=== PATIENT | female | born 1990 | race African-American/Black ===

== ENCOUNTER 2018-01-08 05:19 | Inpatient (IN) | payer SELFPAY ==
[~2018-01-08] VITALS: Ht 175.3 cm; Wt 96.0 kg
[2018-01-08] MEDS ORDERED: DEXT 5%/LR + PITOCIN 20UNITS/L 1,000 ML IV SCH (06:17)
[2018-01-08] MEDS ORDERED: LACTATED RINGERS 1,000 ML IV SCH (06:17)
[2018-01-08] MEDS ORDERED: CARBOPROST TROMETHAMINE 250 MCG/ML AMPUL IM PRN (06:30)
[2018-01-08] MEDS ORDERED: NALOXONE HCL 0.4 MG/ML 1ML VIAL IM PRN (06:30)
[2018-01-08] MEDS ORDERED: METHYLERGONOVINE MALEATE 0.2 MG/ML IM PRN (06:30)
[2018-01-08 06:37] LABS: BASOPHILS % 0.4 % (0.0-2.0); EOSINOPHILS % 0.9 % (0.0-5.0); HEMATOCRIT. 34.3 % (36.0-48.0); HEMOGLOBIN. 11.7 g/dL (12.0-16.0); LYMPHOCYTES % 18.1 % (20.0-50.0); MEAN CORPUSCULAR HEMOGLOBIN 32.1 pg (28.0-32.0); MEAN CORPUSCULAR VOLUME 93.9 fL (81.0-99.0); MEAN PLATELET VOLUME 11.3 fl (7.4-10.4); NEUTROPHILS % 74.6 % (40.0-76.0); PLATELET 190 x1000/uL (130-400); RED BLOOD CELL COUNT 3.65 mill/uL (4.2-5.4); RED CELL DISTRIBUTION WIDTH 14.4 % (11.6-14.6)
[2018-01-08] MEDS ORDERED: CITRIC ACID/SODIUM CITRATE SOLN 30ML UDC PO NR (07:00)
[2018-01-08 07:06] LABS: CLARITY URINE CLEAR (CLEAR); COLOR URINE DARK YELLOW (YELLOW); KETONES URINE TRACE (NEGATIVE); LEUKOCYTE ESTERASE URINE 1+ (NEGATIVE); NITRITE URINE NEGATIVE (NEGATIVE); OCCULT BLOOD URINE TRACE (NEGATIVE); PROTEIN URINE NEGATIVE (NEGATIVE)
[2018-01-08] MEDS ORDERED: PHENYLEPHRINE HCL 10 MG/ML 1ML (IV VIAL) IV ONE (07:10)
[2018-01-08] MEDS ORDERED: OXYTOCIN 10 UNITS/ML 1ML ONE (07:10)
[2018-01-08] MEDS ORDERED: MORPHINE SULFATE/PF 1MG/ML 10ML AMP ONE (07:10)
[2018-01-08] MEDS ORDERED: EPHEDRINE SULFATE 50MG/ML VIAL ONE (07:10)
[2018-01-08] MEDS ORDERED: ONDANSETRON HCL 4MG/2ML VIAL ONE (07:10)
[2018-01-08] MEDS ORDERED: GLYCOPYRROLATE 0.2 MG/ML 2ML VIAL ONE (07:10)
[2018-01-08] MEDS ORDERED: FENTANYL CITRATE/PF 50MCG/ML 2ML VIAL ONE (07:10)
[2018-01-08] MEDS: LACTATED RINGERS 1,000 ML IV SCH ×2 (07:15→08:04)
[2018-01-08] MEDS ORDERED: CEFAZOLIN 2000MG PREMIX 50 ML IV ONE (07:17)
[2018-01-08] MEDS ORDERED: PNV1TABL50 PO (07:28)
[2018-01-08 07:31] LABS: PARTIAL THROMBOPLASTIN TIME 26.8 sec (23.4-31.0); PROTHROMBIN TIME 10.1 sec (9.4-11.6)
[2018-01-08 07:43] LABS: *AMPHETAMINES SCREEN URINE NEGATIVE (NEGATIVE); *BARBITURATES SCREEN URINE NEGATIVE (NEGATIVE); *BENZODIAZEPINES SCREEN URINE NEGATIVE (NEGATIVE); *COCAINE SCREEN URINE NEGATIVE (NEGATIVE)
[2018-01-08 07:44] LABS: CANNABINOID URINE SCREEN NEGATIVE (NEGATIVE); METHADONE URINE SCREEN NEGATIVE (NEGATIVE); OPIATES URINE SCREEN NEGATIVE (NEGATIVE); PHENCYCLIDINE URINE SCREEN NEGATIVE (NEGATIVE)
[2018-01-08] MEDS ORDERED: LANOLIN OINT 0.25 GM TUBE TOP PRN (08:15)
[2018-01-08] MEDS ORDERED: HEMORRHOIDAL SUPP PR PRN (08:15)
[2018-01-08] MEDS ORDERED: DIPHENHYDRAMINE 50MG/ML VIAL ONE (08:44)
[2018-01-08] MEDS ORDERED: BUTORPHANOL TARTRATE 2 MG/ML VIAL IV PRN (09:30)
[2018-01-08] MEDS ORDERED: ONDANSETRON HCL 4MG/2ML VIAL IV PRN (09:30)
[2018-01-08] MEDS ORDERED: NALOXONE HCL 0.4 MG/ML 1ML VIAL IV PRN (09:30)
[2018-01-08] MEDS ORDERED: DIPHENHYDRAMINE 50MG/ML VIAL IV PRN (09:30)
[2018-01-08] MEDS ORDERED: KETOROLAC 30MG/ML VIAL IV PRN (09:30)
[2018-01-08 11:15] LABS: HEPATITIS B SURFACE ANTIGEN NEGATIVE; RUBELLA IGG 185.1 IU/mL (4.99-10)
[2018-01-08] MEDS: OXYTOCIN 20 UNITS in LACTATED RINGERS 1,000 ML IV SCH ×2 (12:05→19:15)
[2018-01-08 12:30] VITALS: BP 93/52
[2018-01-08] MEDS: SIMETHICONE 80MG TABLET CHEW PO SCH ×2 (12:40→17:00)
[2018-01-08 13:00] VITALS: BP 103/46
[2018-01-08 16:00] VITALS: BP 103/54
[2018-01-08 21:15] VITALS: BP 102/45
[2018-01-09 00:02] VITALS: BP 95/57
[2018-01-09 03:18] VITALS: BP 104/54
[2018-01-09] MEDS: OXYTOCIN 20 UNITS in LACTATED RINGERS 1,000 ML IV SCH (03:20)
[2018-01-09 06:59] LABS: BASOPHILS % 0.2 % (0.0-2.0); EOSINOPHILS % 0.5 % (0.0-5.0); HEMATOCRIT. 31.2 % (36.0-48.0); HEMOGLOBIN. 10.8 g/dL (12.0-16.0); LYMPHOCYTES % 7.6 % (20.0-50.0); MEAN CORPUSCULAR HEMOGLOBIN 32.6 pg (28.0-32.0); MEAN CORPUSCULAR VOLUME 93.9 fL (81.0-99.0); MONOCYTES % 5.3 % (2.0-8.0); NEUTROPHILS % 86.4 % (40.0-76.0); PLATELET 141 x1000/uL (130-400); RED BLOOD CELL COUNT 3.32 mill/uL (4.2-5.4); RED CELL DISTRIBUTION WIDTH 14.3 % (11.6-14.6)
[2018-01-09 08:30] VITALS: BP 94/52
[2018-01-09] MEDS: SIMETHICONE 80MG TABLET CHEW PO SCH ×3 (09:56→21:12)
[2018-01-09 16:40] VITALS: BP 115/72
[2018-01-09] MEDS: IBUPROFEN 800MG TABLET PO PRN ×2 (16:40→23:32)
[2018-01-09] MEDS: DOCUSATE SODIUM 100MG CAPSULE PO SCH (21:12)
[2018-01-09 22:00] VITALS: BP 104/57
[2018-01-10 08:00] VITALS: BP 104/74
[2018-01-10] MEDS: SIMETHICONE 80MG TABLET CHEW PO SCH ×4 (08:21→21:24)
[2018-01-10] MEDS: IBUPROFEN 800MG TABLET PO PRN ×2 (08:21→17:46)
[2018-01-10 15:51] VITALS: BP 100/62
[2018-01-10 20:56] VITALS: BP 108/69
[2018-01-10] MEDS: DOCUSATE SODIUM 100MG CAPSULE PO SCH (21:24)
[2018-01-11] VITALS: BP 112/71
[2018-01-11 04:00] VITALS: BP 114/75
[2018-01-11 09:49] VITALS: BP 106/65
== END 2018-01-11 13:30 | disposition home or self-care (01) | DRG 540 ==
LOC: OBSVTOIN 05:19 → L&D 05:19 → 7EST PP/OB 14:01
PROVIDERS: ADMIT Obstetrics & Gynecology Obstetrics; ATTEND Obstetrics & Gynecology Obstetrics
PROC: 10D00Z1 Extraction of Products of Conception, Low, Open Approach (ICD-10-PCS; principal; 2018-01-08 09:25)
DX: O30.043 Twin pregnancy, dichorionic/diamniotic, third trimester (principal); O36.5932 Maternal care for other known or suspected poor fetal growth, third trimester, fetus 2; O69.81X0 Labor and delivery complicated by cord around neck, without compression, not applicable or unspecified; Z37.2 Twins, both liveborn; Z3A.37 37 weeks gestation of pregnancy
CPT/HCPCS: 36415; 80305; 81003; 85025; 85610; 85730; 86592; 86703; 86762; 86850; 86900; 87340; 88307; J0690; J1200; J1885; J2274; J2370; J2405; J3010; J3490; J7120; A4315